=== PATIENT | male | born 1950 | race Caucasian/White ===

== ENCOUNTER 2020-02-06 11:08 | Emergency (ER) | payer OTHER, SELFPAY ==
--- NOTE | ~2020-02-06 | XR_ITS ---
EXAMINATION: XR chest 2V 02/06/2020 11:50 INDICATION: Cough with shortness of breath PROCEDURE: 2 view chest COMPARISON: 12/11/2013 FINDINGS: The lungs are clear. The cardiomediastinal silhouette is within normal limits. There are no pleural effusions. There is no pneumothorax suspected. Calcified granuloma right mid thorax. IMPRESSION: 1: NO ACUTE CARDIOPULMONARY DISEASE. Reviewed, dictated and finalized at location A. ICAL WRITER
[2020-02-06 11:20] VITALS: BP 162/93; PULSE 92; RESP 20; TEMP 36.8; O2SAT 97
--- NOTE | 2020-02-06 11:41 | ED.GENADULT ---
HPI - General Adult General Chief complaint: Upper Respiratory Infection Stated complaint: cough Source: patient Mode of arrival: ambulatory History of Present Illness HPI narrative: Patient presents for evaluation of respiratory complaints. He indicates that he celebrated Thanksgiving with his family including his [id number]-[id number]. He was contacted by his son yesterday who informed him that patient's [id number] did test positive for Covid. Patient states for the last week he has had postnasal drainage, yellow rhinorrhea, and a cough. Seven days ago he experienced subjective fever and chills. He has some mild shortness of breath but that is only with exertion. He does smoke about a pack a day at baseline but has only been smoking about 7 cigarettes a day in the last week due to his respiratory complaints. His is also here being evaluated for cough. Related Data Allergies Allergy/AdvReac Type Severity Reaction Status Date / Time Penicillins Allergy Unknown Verified 10/26/15 16:13 Sulfa (Sulfonamide Allergy Unknown Verified 10/26/15 16:13 Antibiotics) SULFAMETHOXAZOLE (Generic Allergy Y Uncoded 08/24/02 15:59 Allergy) Review of Systems Review of Systems: Narrative: CONSTITUTIONAL: Reports recent subjective fever, chills, sweats which are now resolved. EYES: Denies visual changes, redness, or discharge. ENT: Reports yellow rhinorrhea and postnasal drainage denies congestion, sore throat, or otalgia. CARDIOVASCULAR: Denies chest pain, palpitations, or edema. RESPIRATORY: Reports cough and dyspnea on exertion. GASTROINTESTINAL: Denies abdominal pain, nausea, vomiting, or diarrhea. GENITOURINARY: Denies dysuria or hematuria. SKIN: Denies rash or itching. MUSCULOSKELETAL: Denies back pain, joint pain, or myalgia. NEUROLOGIC: Denies headache, numbness, dizziness, or weakness. PSYCHIATRIC: Denies anxiety or depression. [facility] Past Medical History Medical History (Updated 02/06/20 @ 12:18 by HARMONY Goyal, ANANYA) Tobacco use disorder Surgical History Surgical History No pertinent past surgical history Family History Family History Mother Dementia Father Dementia Transient ischemic attack Social History Social History Smoking status: Heavy tobacco smoker Additional smoking assessment comments: 1 pack/day Alcohol intake: current Alcohol use details: 3-6 beers per day Substance use: never Living arrangements: with family Gender identity (if verbalized by the patient): Male Sexual Orientation (if Verbalized by the Patient): Straight or Heterosexual Spiritual care concerns: No Exam Narrative: Exam Narrative: GENERAL: Well-appearing, well-nourished, and in no acute distress. HEAD: Normocephalic, atraumatic. EYES: PERRLA and EOMI. ENT: Nares clear, no rhinorrhea or epistaxis. Mucous membranes moist. Oropharynx without tonsillar hypertrophy exudate or other lesions. Bilateral TMs pearly judge nonbulging NECK: Supple. No adenopathy or masses. No carotid bruits or JVD CHEST: No respiratory distress. Inspiratory and expiratory wheezing auscultated in all lung elias posteriorly HEART: Regular rate and rhythm. No murmur heard. Normal peripheral pulses. ABDOMEN: Soft, nontender, nondistended, normal active bowel sounds. EXTREMITIES: Normal range of motion. No edema. SKIN: Warm, dry, no rash. NEURO: No focal deficits. Alert and oriented x3. PSYCH: Normal mood and affect. Course Course Emergency Course: 69-year-old male with history of tobacco use who presents for respiratory symptoms after recent exposure to Covid. Chest x-ray was negative. Influenza and strep were both negative. On exam he is wheezing but saturations are within normal limits. He was given an injection of Solu-Medrol. She was advi
[2020-02-06] MEDS: methylPREDNISolone SOD SUCC 125 MG VIAL IM (11:50)
== END 2020-02-06 12:33 | disposition home or self-care (01) ==
PROVIDERS: Emergency Provider Nurse Practitioner
DX: R05 Cough (principal); R50.9 Fever, unspecified; Z20.828 Contact with and (suspected) exposure to other viral communicable diseases; F17.200 Nicotine dependence, unspecified, uncomplicated
CPT/HCPCS: 71046; 87081; 87804; 87880; 96372; 99213; G0463; J2930

== ENCOUNTER 2021-10-17 11:20 | Outpatient (CLI) | payer OTHER, MEDICARE, SELFPAY ==
--- NOTE | ~2021-10-17 | XR_ITS ---
XR chest 2V 10/17/2021 11:56 Indication: Umbilical hernia Procedure: 2 view chest Comparison: 02/06/2020 Findings: Bibasilar atelectasis. Calcified granuloma right mid thorax. Heart size is normal. No edema , focal pneumonia, significant effusion or pneumothorax. Impression: 1: Bibasilar atelectasis. Reviewed, dictated and finalized at location B. Impression: 1: Bibasilar atelectasis.
--- NOTE | 2021-10-17 11:30 | ECG_ITS ---
Measurements Intervals [place] Rate: 70 P: 69 [place]: 162 QRS: 43 QRSD: 93 T: 123 QT: 381 QTc: 411 Interpretive Statements SINUS RHYTHM NONSPECIFIC T-WAVE ABNORMALITY ABNORMAL ECG NO PREVIOUS ECG AVAILABLE FOR COMPARISON Electronically Signed On 10-17-2021 12:38:05 CDT by Gaston Jurado M.D.
[2021-10-17 12:06] LABS: Basophils Absolute Auto 0.1 K/mm3 (0.0-0.1); Basophils Percent Auto 0.6 % (0.2-1.2); Eosinophils Absolute Auto 0.2 K/mm3 (0-0.3); Eosinophils Percent Auto 2.2 % (0-4.4); Hematocrit 44.4 % (42.0-52.0); Hemoglobin 15.2 g/dL (14.0-18.0); Immature Granulocyte Absolute 0.09 K/mm3 (0.00-0.031); Immature Granulocyte Percent A 0.8 % (0-0.5); Lymphocytes Absolute Auto 2.64 K/mm3 (0.9-3.2); Lymphocytes Percent Auto 24.3 % (18.3-44.2); Mean Corpuscular HGB Conc 34.2 g/dl (32-36); Mean Corpuscular Hemoglobin 32.8 pg (26-34); Mean Corpuscular Volume 95.9 fl (80-100); Mean Platelet Volume 8.7 fl (7.4-10.4); Monocytes Absolute Auto 0.9 K/mm3 (0.1-0.6); Monocytes Percent Auto 8.6 % (2.6-8.5); Neutrophils Absolute Auto 6.9 K/mm3 (1.3-6.7); Neutrophils Percent Auto 63.5 % (45.5-73.1); Platelet Count Result 353 k/mm3 (150-375); Red Blood Count 4.63 M/mm3 (4.6-6.20); Red Cell Distribution Width 12.7 % (11.5-14.5); White Blood Count 10.9 K/mm3 (4.5-10.0)
[2021-10-17 12:18] LABS: Anion Gap 8 mmol/L (8-16); Blood Urea Nitrogen 17 mg/dL (9-20); Calcium 9.1 mg/dL (8.4-10.2); Carbon Dioxide 28 mmol/L (22-30); Chloride 99 mmol/L (98-107); Estimated Glomerular Filt Rate > 60; Glucose 107 mg/dL (65-110); Potassium 4.4 mmol/L (3.4-5.0); Sodium 135 mmol/L (137-145)
== END 2021-10-17 11:21 | disposition home or self-care (01) ==
LOC: ANHSURGERY 11:35
PROVIDERS: PCP Family Medicine; Visit Provider Surgery
DX: Z01.818 Encounter for other preprocedural examination (principal); K42.9 Umbilical hernia without obstruction or gangrene; J98.11 Atelectasis
CPT/HCPCS: 36415; 71046; 80048; 85025; 93005

== ENCOUNTER 2021-10-19 00:25 | Day surgery (SDC) | payer OTHER, MEDICARE, SELFPAY ==
[2021-10-15 15:11] VITALS: BMI 29.9
--- NOTE | 2021-10-15 15:20 | PC.NURSE ---
PRE-OP INSTRUCTIONS, PLEASE READ CAREFULLY Report to the Outpatient Waiting Room, entrance under the green pavilion located off [facility], at time _0730_ on date _10/19/21_. OR Time: _0930_. - You and your visitor will be asked to self-screen and do not enter if you have any COVID symptoms. - Only one visitor and NO children visitors are allowed at this time. - The patient visitor is requested to leave or wait in car when not with patient due to restrictions. - A mask is required within the hospital. Patients may have clear liquids (water, carbonated beverages, clear teas, apple juice) until 3 hours prior to surgery (0630 AM) with a maximum of 20 ounces. - No food from midnight until time of surgery Take the following medications with a SIP of water the morning of surgery: _NONE__ Medications to discontinue per ANESTHESIA - _PRESERVISION 3 DAYS PRIOR TO SURGERY, Date to take last dose 10/15/21_ Please no make-up, nail cymraes, hairspray, perfume, deodorant, or body powder the day of surgery. No jewelry (including any body piercings) or valuables the day of surgery, leave them at home. Please take a shower or bath the night before, or the morning of, surgery with an antibacterial soap. Wear comfortable, loose fitting clothing. Children are encouraged to wear pajamas. - Jewelry must be removed prior to entering the operating room. Rings and piercings that are not removed may be cut off. - The hospital will not accept responsibility for valuables. - Please leave all valuables, including medications, at home the day of surgery. If you are going home after surgery, a licensed milk pickup truck driver must drive you home. - NO public transportation without another adult. - We recommend that an adult stay with you for 24 hours following discharge. - We also recommend that you do not drive, make important decision, drink alcoholic beverages, or take any drugs that were not prescribed by your health care provider for at least 24 hours after your discharge time. Follow any additional instructions given to you from your surgeon. HIBICLENS SHOWER AM OF SURGERY If you or anyone in your household have experienced Covid symptoms in the past week, please notify your surgeon or the nurse liaison at the phone number below for possible testing. Telephone instructions given to __PT and asked if any additional questions and then verbalized understanding. Patient advised to call surgeon office or pre surgery nurse liaison [phone] if any additional questions.
--- NOTE | 2021-10-17 17:04 | PM.SD2 ---
Same Day Admit/Disch: HPI History of Present Illness Chief complaint: Umb Hernia Narrative: Ayo Guillen is a 71 year old male Who has noticed a bulge in the umbilical area for approximately 1 year. The bulge has been getting bigger and the patient notices a pressure and a pain when straining. He was seen in the office. After discussion he is taken to surgery at this time for repair of the umbilical hernia with mesh. [facility] Past Medical History Medical History BMI 29.0-29.9,adult Cough Fever Tobacco use disorder Surgical History Surgical History H/O wrist surgery 2002 No pertinent past surgical history Family History Family History Mother Dementia Father Dementia Transient ischemic attack Social History Social History Smoking packs per day: 1 Smoking cigarettes per day: 20.0 Years smoked: 40 Smoking pack-years: 40.00 Smoking status: Current every day smoker Tobacco type: cigarettes Second hand tobacco smoke exposure: Yes Additional smoking assessment comments: 1 pack/day Alcohol intake: current Alcohol use details: STATES WAS 3-6 BEERS DAILY NOW 12 BEERS/WEEK Substance use: never Substance use type: does not use Living arrangements: with family Gender identity (if verbalized by the patient): Male Sexual Orientation (if Verbalized by the Patient): Straight or Heterosexual Spiritual care concerns: No Same Day Admit/Disch: Med Pre-admit Medications Home Medications Medication Instructions Recorded Confirmed Type vit C 250 mg-E 90 mg-zinc 40 1 tablet PO QAM AND QPM 10/15/21 10/19/21 History mg-copper 1 el-vrijry-liriar chew tablet (PreserVision AREDS-2) hydrocodone 5 mg-acetaminophen 325 1 - 2 tablet PO Q6H PRN pain #10 10/19/21 Rx mg tablet tabs ibuprofen 600 mg tablet 600 mg PO Q6H PRN pain #14 tabs 10/19/21 Rx Exam Const: General: comfortable, no acute distress, alert and awake HENMT: Head: normocephalic and atraumatic Mouth: Yes Normal oral and palatal mucosa present Eyes: Conjunctivae: conjunctivae normal Pupils: Equal, round and reactive pupils present EOM: EOMs intact bilaterally Neck: Neck: normal visual inspection, no lymphadenopathy and nontender Resp: Effort & Inspection: normal respiratory effort Auscultation: clear to auscultation bilaterally Cardio: Rate: regular rate Rhythm: regular rhythm Heart sounds: no gallops, no murmurs and no rubs GI: Inspection: non-distended, obesity and visible herniation ( diastasis also visible) GI Palp: Yes Soft to palpation, No Tenderness to palpation present (GI), No Hepatomegaly present, No Splenomegaly present and Yes Hernia present ( reducible 1.5 cm umbilical hernia) Auscultation: normal bowel sounds Skin: Lesions: no lesions Rashes: no rashes Neuro: General: no focal motor deficits and CN's II-XI intact bilaterally Cranial nerves: Yes Equal, round and reactive pupils present, Yes Bilaterally intact EOM present, Yes facial symmetry and Yes Midline tongue present Speech: normal speech Motor exam (neuro): 5/5 motor strength present throughout and Motor abnormalities not present Extrem: General: no clubbing, cyanosis or edema and edema Psych: Affect: normal affect Thought process: Normal thought process present Insight: Good insight present (Psych) DS: Summary Time Spent with Patient Time attestation: Total time spent providing and/or coordinating discharge services: DS: Admitting Diagnosis Discharge Date 10/19/2021 Admitting Diagnosis symptomatic reducible umbilical hernia -plan to proceed with repair using mesh as an outpatient. The procedure the risks the benefits have been discussed. All questions were answered. He understands and agrees to go ahead. Jorge
--- NOTE | 2021-10-19 08:19 | WPDHPUPDATE1 ---
History and Physical Update Update Date/Time: 10/19/21 08:19 History and Physical has been reviewed, including an updated exam of the patient. There are NO changes in the patient's condition. Risks, benefits, and alternatives have been discussed and questions answered. Patient agrees to proceed with procedure.
[2021-10-19] MEDS: LACTATED RINGERS 1,000 ML 30 ML IV CONT (08:35)
[2021-10-19] MEDS: KETOROLAC 15 MG/ML VIAL (*BKC) IV PUSH (08:38)
[2021-10-19] MEDS: ACETAMINOPHEN 500 MG TABLET 1000 MG PO (08:38)
--- NOTE | 2021-10-19 08:44 | WPDANESEPPF ---
Anes - Initial Pre Proc Eval Procedure: Operation Date: 10/19/21 09:30 Proposed Procedures p Umbilical Hernia Repair with Mesh - Alexandru Barnes MD Date/Time: 10/19/21 08:44 Surgeon: Alexandru Barnes MD Pre Op Diagnosis: Umb Hernia Patient Data Age: 71 Gender: M Height: 1.83 m Weight: 100 kg Allergies Allergy/AdvReac Type Severity Reaction Status Date / Time Penicillins Allergy Mild Unknown- Verified 10/15/21 15:10 A CHILD Sulfa (Sulfonamide Allergy Mild Unknown- Verified 10/15/21 15:10 Antibiotics) A CHILD Home Medications Medication Instructions Recorded Confirmed Type vit C 250 mg-E 90 mg-zinc 40 1 tablet PO QAM AND QPM 10/15/21 10/15/21 History mg-copper 1 ee-hrwvld-jscfqo chew tablet (PreserVision AREDS-2) Patient hx anesthesia problems: none Family hx anesthesia problems: none Results Review: All pre-operative results and documents have been reviewed as part of the pre-operative evaluation. [facility] Past Medical History Medical History BMI 29.0-29.9,adult Cough Fever Tobacco use disorder Surgical History Surgical History H/O wrist surgery 2002 No pertinent past surgical history Family History Family History Mother Dementia Father Dementia Transient ischemic attack Social History Social History Smoking packs per day: 1 Smoking cigarettes per day: 20.0 Years smoked: 40 Smoking pack-years: 40.00 Smoking status: Current every day smoker Tobacco type: cigarettes Second hand tobacco smoke exposure: Yes Additional smoking assessment comments: 1 pack/day Alcohol intake: current Alcohol use details: STATES WAS 3-6 BEERS DAILY NOW 12 BEERS/WEEK Substance use: never Substance use type: does not use Living arrangements: with family Gender identity (if verbalized by the patient): Male Sexual Orientation (if Verbalized by the Patient): Straight or Heterosexual Spiritual care concerns: No Anes - Eval Final PreProcedure Day of Procedure 10/19/21 08:44 Patient weight: obese Heart: regular rate and rhythm Lungs: clear to auscultation Airway: Mallampati scale class II Neurological: alert and oriented Last oral intake: >/= 8 hours ASA classification: III Emergent: no Anesthetic plan: proceed Anesthesia type and monitoring: general GIVS and standard monitoring Results Review: All pre-operative results and documents have been reviewed as part of the pre-operative evaluation. Informed Consent: The patient's anesthetic plan and its attendant risks and benefits were discussed with the patient/family/POA. Questions were solicited and answers provided to the satisfaction of the patient/family/POA.
[2021-10-19] MEDS: ceFAZolin 2 GM/D5W 50 ML 2 GM/50 ML BAG IVPB (09:51)
[2021-10-19] MEDS: BUPIVACAINE/EPINEPHRINE 0.25% 50 ML VIAL 30 ML INFILTRATE (10:02)
[2021-10-19 10:45] VITALS: BP 134/72; PULSE 76; RESP 12; O2SAT 96
--- NOTE | 2021-10-19 10:52 | W.PM.PROC2 ---
Procedure Note - Detailed Date of Procedure 10/19/21 Pre-op Diagnosis Umb Hernia Post-op Diagnosis Same Procedure Performed Umbilical hernia repair with 6.[address] underlay mesh Surgeon Alexandru Barnes MD Sewage Disposal Engineer Maria L CLARK Anesthesia General (G IV S) and Local (0.25% bupivacaine with epinephrine) Indications Patient is a 71-year-old man with an umbilical bulge that is sometimes painful with straining. He is taken to surgery now for umbilical hernia repair. Findings Umbilical hernia. 1.8 cm in transverse dimension, 0.7 cm longitudinal direction Description of Procedure Patient was taken to surgery and anesthesia was introduced. The abdomen was prepped and draped. The proposed incision was marked along the upper margin of the umbilicus. Local anesthetic was infiltrated into the skin and the deeper subcutaneous tissues. Incision was made dissection was carried down through the subcutaneous. We dissected down to the hernia sac. We dissected around the hernia sac around the fascial neck of the hernia. I then infiltrated additional local into the hernia sac itself and to the fascia around the hernia defect. I divided the hernia sac at its neck and excised it from the fascia. I then excised the hernia sac from the umbilical skin. The sac was discarded. I infiltrated additional local into the fascia around the defect. I then undermined the subcutaneous all around the defect leaving plenty of space for transfascial sutures. A 6.[address] patch was chosen. It was placed in the defect in position symmetrically. Cranial and caudal transfascial sutures were then placed. These were then tied. Tying the suture advance the edges of the hernia defect towards 1 another, reducing the tension on the closure of the defect. Right and left lateral transfascial sutures were then placed. The sutures were all 0 Ethibond. I then used an additional 0 Ethibond suture and closed the defect with a oadbof-yy-zevvt mattress suture. This also incorporated a bit of mesh. The umbilical skin was then sutured to the fascia with 3-0 Vicryl. Some subcutaneous 3-0 Vicryl sutures were then placed. The skin was loosely approximated with subcuticular 4-0 Vicryl skin suture. The skin was finally closed with a running 4-0 Monocryl skin suture. Wound was dressed with Exofin surgical adhesive. The patient was awakened and taken to recovery in good condition. Sponge and needle counts were correct x2. Implants 6.[address] mesh Estimated Blood Loss -5 Drains No Packing No Pathology None sent Complications No immediate complications Condition Stable Disposition Same day [facility] Billing Surgery - Charge Forward: Surgery Billing (Umbilical hernia repair with mesh)
[2021-10-19 11:15] VITALS: BP 150/75; PULSE 74; RESP 16
[2021-10-19] MEDS: oxyCODONE HCL (*CRX) 5 MG TAB IR PO (11:32)
[2021-10-19 11:45] VITALS: BP 152/72; PULSE 74; RESP 16
== END 2021-10-19 11:57 | disposition home or self-care (01) ==
PROVIDERS: PCP Family Medicine; Visit Provider Surgery
PROC: (CPT 49585; principal; 2021-10-19 09:30)
DX: K42.9 Umbilical hernia without obstruction or gangrene (principal); F17.210 Nicotine dependence, cigarettes, uncomplicated
CPT/HCPCS: 49585; 36415; 71046; 80048; 85025; 93005; A9270; C1781; J0690; J1885; J2704; J3010; J7120

== ENCOUNTER 2022-09-30 09:00 | Outpatient (NON) | payer OTHER, MEDICARE, SELFPAY | END 2022-09-30 09:01 | disposition home or self-care (01) | LOC: ANHLAB 10-01 10:35 | PROVIDERS: PCP Family Medicine; Visit Provider Internal Medicine Gastroenterology | DX: Z12.11 Encounter for screening for malignant neoplasm of colon (principal); D12.2 Benign neoplasm of ascending colon; D12.4 Benign neoplasm of descending colon; D12.5 Benign neoplasm of sigmoid colon | CPT/HCPCS: 88305 ==

== ENCOUNTER 2022-09-30 09:29 | Day surgery (SDC) | payer OTHER, MEDICARE, SELFPAY ==
[2022-09-17 13:50] VITALS: BMI 29.6
[2022-09-17 14:31] VITALS: BMI 27.0
--- NOTE | 2022-09-30 10:47 | WPDANESEPPF ---
Anes - Initial Pre Proc Eval Procedure: Operation Date: 09/30/22 12:00 Proposed Procedures p Screening Colonoscopy - Salinas Starr MD Date/Time: 09/30/22 10:47 Surgeon: Salinas Starr MD Pre Op Diagnosis: Neoplasm Screening Patient Data Age: 72 Gender: M Height: 1.83 m Weight: 90.5 kg Allergies Allergy/AdvReac Type Severity Reaction Status Date / Time Penicillins Allergy Mild Unknown- Verified 09/30/22 10:46 A CHILD Sulfa (Sulfonamide Allergy Mild Unknown- Verified 09/30/22 10:46 Antibiotics) A CHILD Home Medications Medication Instructions Recorded Confirmed Type vit C 250 mg-E 90 mg-zinc 40 1 tablet PO QAM AND QPM 10/15/21 09/17/22 History mg-copper 1 yu-tvafsv-gfwbxg chew tablet (PreserVision AREDS-2) Patient hx anesthesia problems: none Family hx anesthesia problems: none Results Review: All pre-operative results and documents have been reviewed as part of the pre-operative evaluation. [facility] Past Medical History Medical History BMI 29.0-29.9,adult Cough Fever Tobacco use disorder Surgical History Surgical History H/O umbilical hernia repair 10/19/21 H/O wrist surgery 2002 No pertinent past surgical history Family History Family History Mother Dementia Father Dementia Transient ischemic attack Social History Social History Smoking packs per day: 1 Smoking cigarettes per day: 20.0 Years smoked: 40 Smoking pack-years: 40.00 Smoking status: Current every day smoker Tobacco type: cigarettes Second hand tobacco smoke exposure: Yes Additional smoking assessment comments: 1 pack/day Alcohol intake: current Alcohol use details: STATES WAS 3-6 BEERS DAILY NOW 12 BEERS/WEEK Substance use: never Substance use type: does not use Living arrangements: with family Gender identity (if verbalized by the patient): Male Sexual Orientation (if Verbalized by the Patient): Straight or Heterosexual Spiritual care concerns: No Anes - Eval Final PreProcedure Day of Procedure 09/30/22 10:47 Patient weight: overweight Heart: regular rate and rhythm Lungs: clear to auscultation Airway: Mallampati scale class II Neurological: alert and oriented Last oral intake: >/= 8 hours ASA classification: III Emergent: no Anesthetic plan: proceed Anesthesia type and monitoring: general GIVS and standard monitoring Results Review: All pre-operative results and documents have been reviewed as part of the pre-operative evaluation. Informed Consent: The patient's anesthetic plan and its attendant risks and benefits were discussed with the patient/family/POA. Questions were solicited and answers provided to the satisfaction of the patient/family/POA.
[2022-09-30 10:49] VITALS: BP 143/85; PULSE 76; RESP 16; TEMP 36.7; O2SAT 97
[2022-09-30] MEDS: LACTATED RINGERS 1,000 ML 150 ML IV CONT (10:58)
--- NOTE | 2022-09-30 11:06 | PM.HPGS ---
History of Present Illness History of Present Illness Consent: Risks, benefits, and alternatives have been discussed and questions answered. Patient agrees to proceed with procedure. Chief complaint: Neoplasm Screening Narrative: Ayo Guillen is a 72 year old male here for screening colonoscopy, last one about 20 years ago Review of Systems Constitutional: Constitutional: Denies headache(s) and Denies weakness Eyes: Eyes: Denies blurry vision ENT: Reports Normal hearing present, Denies headache(s) and Denies neck pain Cardiovascular: Cardiovascular: Denies chest pain and Denies dyspnea Respiratory: Respiratory: Denies dyspnea Gastrointestinal: Gastrointestinal: Reports no additional gastrointestinal complaints Genitourinary: Genitourinary: Denies dysuria Musculoskeletal: Musculoskeletal: Denies neck pain Integumentary/Breasts: Skin/Breast: Denies dry skin Neurologic: Reports Normal hearing present, Denies headache(s) and Denies weakness Psychiatric: Psychiatric: Denies anxiety Endocrine: Endocrine: Denies change in body appearance Hematologic/Lymphatic: Hematologic/Lymphatic: Denies easy bleeding Allergic/Immunologic: Allergic/Immunologic: Denies urticaria PMFSH Past Medical History Medical History (Updated 09/30/22 @ 11:07 by Salinas Starr MD) BMI 29.0-29.9,adult Colon cancer screening Cough Fever Tobacco use disorder Surgical History Surgical History H/O umbilical hernia repair 10/19/21 H/O wrist surgery 2002 No pertinent past surgical history Family History Family History Mother Dementia Father Dementia Transient ischemic attack Social History Social History Smoking packs per day: 1 Smoking cigarettes per day: 20.0 Years smoked: 40 Smoking pack-years: 40.00 Smoking status: Current every day smoker Tobacco type: cigarettes Second hand tobacco smoke exposure: Yes Additional smoking assessment comments: 1 pack/day Alcohol intake: current Alcohol use details: STATES WAS 3-6 BEERS DAILY NOW 12 BEERS/WEEK Substance use: never Substance use type: does not use Living arrangements: with family Gender identity (if verbalized by the patient): Male Sexual Orientation (if Verbalized by the Patient): Straight or Heterosexual Spiritual care concerns: No Meds Home Medications and Allergies Home Medications Medication Instructions Recorded Confirmed Type vit C 250 mg-E 90 mg-zinc 40 1 tablet PO QAM AND QPM 10/15/21 09/30/22 History mg-copper 1 mq-ebydbg-rxyexm chew tablet (PreserVision AREDS-2) Allergies Allergy/AdvReac Type Severity Reaction Status Date / Time Penicillins Allergy Mild Unknown- Verified 09/30/22 10:46 A CHILD Sulfa (Sulfonamide Allergy Mild Unknown- Verified 09/30/22 10:46 Antibiotics) A CHILD Vital Signs Vital Signs - 24 hr 09/30/22 10:49 Temperature 98.0 F Pulse Rate 76 Respiratory Rate 16 Blood Pressure 143/85 H Pulse Oximetry 97 Oxygen Delivery Room Air Exam Const: General: comfortable and no acute distress HENMT: Face/Nose/Sinus: Normal nares present Eyes: General: appearance normal, both eyes and all related structures Neck: Neck: no JVD Resp: Auscultation: clear to auscultation bilaterally Cardio: Rate: regular rate Rhythm: regular rhythm GI: Inspection: non-distended GI Palp: Yes Soft to palpation Skin: General skin exam: normal color Neuro: General: gait normal Speech: normal speech Extrem: General: normal to inspection Psych: Mental Status: mental status grossly normal Assessment and Plan Assessment and plan (1) Colon cancer screening: Code(s): Z12.11 - Encounter for screening for malignant neoplasm of colon Status: Acute Assessment and Plan: colonoscopy
[2022-09-30 11:38] VITALS: BP 121/72; PULSE 78; RESP 18; O2SAT 97
--- NOTE | 2022-09-30 11:42 | WPDANESPN ---
Anes - Prog Note Post-Op Date/Time: 09/30/22 11:42 Cardiovascular status: normal Respiratory status: normal Airway patency: baseline Mental status: baseline Post-Op hydration status: normal Vital Signs: Last Vital Signs Temp 36.7 C 09/30/22 10:49 Pulse 76 09/30/22 10:49 Resp 16 09/30/22 10:49 BP 143/85 H 09/30/22 10:49 Pulse Ox 97 09/30/22 10:49 O2 Del Method Room Air 09/30/22 10:49 Pain Score (VAS): 0/10 I/O: Intake & Output 09/29/22 09/30/22 09/30/22 23:59 07:59 15:59 Intake Total 600 Balance 600 Patient Feedback: Patient satisfied with anesthetic care.
[2022-09-30 11:48] VITALS: BP 137/79; PULSE 79; RESP 20; O2SAT 99
[2022-09-30 11:58] VITALS: BP 146/86; PULSE 66; RESP 20; O2SAT 99
== END 2022-09-30 12:14 | disposition home or self-care (01) ==
PROVIDERS: PCP Family Medicine; Visit Provider Internal Medicine Gastroenterology
PROC: 0DJD8ZZ Inspection of Lower Intestinal Tract, Via Natural or Artificial Opening Endoscopic (ICD-10-PCS; CPT 45378; principal; 2022-09-30 12:00)
DX: Z12.11 Encounter for screening for malignant neoplasm of colon (principal); D12.2 Benign neoplasm of ascending colon; D12.4 Benign neoplasm of descending colon; D12.5 Benign neoplasm of sigmoid colon; K57.30 Diverticulosis of large intestine without perforation or abscess without bleeding; K64.8 Other hemorrhoids
CPT/HCPCS: 45385

== ENCOUNTER 2023-10-01 10:32 | Emergency (ER) | payer MEDICARE, SELFPAY ==
[2023-10-01 10:48] VITALS: BP 185/86; PULSE 98; RESP 15; TEMP 36.2; O2SAT 97
--- NOTE | 2023-10-01 11:09 | ED.MALEGU ---
HPI - Male Genitourinary General Chief complaint: Urogenital-Male Stated complaint: testicle swelling Time Seen by Provider: 10/01/23 10:50 Source: patient and RN notes reviewed Mode of arrival: ambulatory Limitations: no limitations History of Present Illness HPI Narrative: Patient presents today complaining of swelling to his scrotum and penis that started at 4:00 p.m. yesterday afternoon. Denies injury or trauma to the area. States he may have been bit by an insect to the left groin fold while pulling weeds. He has been applying ice without relief of symptoms. He has tried no medication for symptoms prior to arrival. Denies pain, but reports some very scant itching. Denies issues with urination besides his normal prostate issues. Related Data Home Medications Medication Instructions Recorded Confirmed vit C 250 mg-E 90 mg-zinc 40 1 tablet PO QAM AND QPM 10/15/21 10/01/23 mg-copper 1 [id number] chew tablet (PreserVision AREDS-2) Allergies Allergy/AdvReac Type Severity Reaction Status Date / Time Penicillins Allergy Mild Unknown- Verified 10/01/23 10:35 A CHILD Sulfa (Sulfonamide Allergy Mild Unknown- Verified 10/01/23 10:35 Antibiotics) A CHILD Review of Systems Review of Systems: CONSTITUTIONAL: Denies body aches, fever, chills, or sweats. EYES: Denies visual changes, redness, or discharge. ENT: Denies rhinorrhea, congestion, sore throat, or otalgia. CARDIOVASCULAR: Denies chest pain, palpitations, or edema. RESPIRATORY: Denies cough or dyspnea. GASTROINTESTINAL: Denies abdominal pain, nausea, vomiting, or diarrhea. GENITOURINARY: Denies dysuria or hematuria. + scrotal and penile swelling SKIN: Denies rash, itching, or wounds. MUSCULOSKELETAL: Denies back pain, joint pain, or myalgia. NEUROLOGIC: Denies headache, numbness, tingling, or weakness. PSYCH: Denies depression or anxiety. [facility] Past Medical History Medical History BMI 29.0-29.9,adult Colon cancer screening Cough Fever Tobacco use disorder Surgical History Surgical History H/O umbilical hernia repair 10/19/21 H/O wrist surgery 2002 No pertinent past surgical history Family History Family History Mother Dementia Father Dementia Transient ischemic attack Social History Social History Smoking packs per day: 1 Smoking cigarettes per day: 20.0 Years smoked: 40 Smoking pack-years: 40.00 Smoking status: Current every day smoker Tobacco type: cigarettes Second hand tobacco smoke exposure: Yes Additional smoking assessment comments: 1 pack/day Alcohol intake: current Alcohol use details: STATES WAS 3-6 BEERS DAILY NOW 12 BEERS/WEEK Substance use: never Substance use type: does not use Living arrangements: with family Gender identity (if verbalized by the patient): Male Sexual Orientation (if Verbalized by the Patient): Straight or Heterosexual Spiritual care concerns: No Comments At time of signature, I have reviewed and agree with nursing past medical, surgical, social and family history unless otherwise noted. Please see nursing chart for further information. There is no relevant family history pertinent to the presenting complaint Exam Narrative: GENERAL: Well-appearing, well-nourished, and in no acute distress. HEAD: Normocephalic, atraumatic. EYES: EOMI. No redness or drainage. Conjunctivae normal. ENT: Mucous membranes pink and moist. NECK: Normal AROM. CHEST: No respiratory distress. :Severe edema to the scrotum and moderate edema to the penis. Induration to the scrotum as well. Unable to palpate the testicles due to edema of the scrotum. Nontender to palpation. No insect bite/puncture wounds noted to the left groi
== END 2023-10-01 11:12 | disposition short-term general hospital (02) ==
PROVIDERS: Emergency Provider Nurse Practitioner; PCP Family Medicine
DX: N50.89 Other specified disorders of the male genital organs (principal); N48.89 Other specified disorders of penis; F17.210 Nicotine dependence, cigarettes, uncomplicated
CPT/HCPCS: 99212; G0463

== ENCOUNTER 2023-10-01 11:59 | Emergency (ER) | payer MEDICARE, SELFPAY ==
--- NOTE | ~2023-10-01 | US_ITS ---
TESTICULAR ULTRASOUND (Doppler ultrasound interrogation techniques used as needed for this exam.) Ordering provider: Valeria Warner PA-C History: . bilateral testicle swelling . Comparison: None. FINDINGS: TESTICLES: Normal in size. The right measures 3.3x 2x 1.9 cm and the left measures 4.8x 2.9x 3.1 cm. Hyperechoic well-circumscribed area in the lateral aspect of the right testicular is noted. Otherwise , Normal echogenicity bilaterally without mass lesion. Normal Doppler flow bilaterally. EPIDIDYMIDES: Normal in size. The right measures 0.6 cm and the left 0.8 cm. Normal echogenicity bila terally. Both demonstrate normal Doppler flow. HYDROCELE: Small left VARICOCELE: None. OTHER ABNORMALITY: Thickened scrotal wall measuring 2 cm bilaterally.. IMPRESSION: Echogenic area in the right testicular. The differential include hematoma versus a mass versus infect ion. Follow-up advised. Thickened scrotum. Small left hydrocele Otherwise, normal testicular ultraso und. Reviewed, dictated and finalized at location A. IMPRESSION: Echogenic area in the right testicular. The differential include hematoma versu s a mass versus infection. Follow-up advised. Thickened scrotum. Small left hy drocele Otherwise, normal testicular ultrasound.
[2023-10-01 12:01] VITALS: BP 191/95; PULSE 105; RESP 18; TEMP 37.1; O2SAT 99
[2023-10-01 13:03] LABS: Appearance Urine Clear (Clear); Bilirubin Urine Negative (Negative); Blood Urine Negative (Negative); Color Urine Yellow (Yellow); Glucose Urine UA Negative (Negative); Ketones Urine Negative (Negative); Leukocyte Esterase Ur Negative LEU/UL (Negative); Nitrate Urine Negative (Negative); Protein Urine Negative (Negative); Specific Grav Ur 1.013 (1.001-1.035); Urobilinogen Urine 0.2 mg/dL (<2.0); pH Urine 6.5 (5.0-9.0)
[2023-10-01 13:09] LABS: Add Urine Microscopic? NO
[2023-10-01] MEDS: FAMOTIDINE 20 MG TABLET 40 MG PO (13:50)
[2023-10-01] MEDS: dexAMETHasone SOD PHOS INJ 10 MG/ML 1 ML VIAL PO (13:50)
[2023-10-01] MEDS: diphenhydrAMINE HCl CAP 25 MG CAPSULE 50 MG PO (13:50)
--- NOTE | 2023-10-01 14:18 | WPDURCON ---
Assessment and Plan Assessment and plan (1) Epididymoorchitis: Code(s): N45.3 - Epididymo-orchitis Status: Acute Assessment and Plan: Right side. Will begin Bactrim x2 weeks. Recommend scrotal support and compression. Will f/u in 2 weeks with repeat scrotal ultrasound prior. Instructed to return to ER if worsened swelling, pain, fever, chills. (2) Scrotal swelling: Code(s): N50.89 - Other specified disorders of the male genital organs Status: Acute Assessment and Plan: Plan as above. Discussed supportive care measures Urology Consult Note HPI Date Seen: 10/01/23 Primary Care Provider: Tadeo Kam MD Consult Narrative Narrative: Ayo Guillen is a 73 year old male with history of BPH not currently on any medications who is being seen in consultation for bilateral testicular pain and swelling. The patient states he was out pulling weeks yesterday when he had sudden onset of sharp left groin pain. He felt that he was either stung or bit by something. Today while he was urinating he looked down and noticed significant swelling of his penis and bilateral testicles. He has no tenderness, pain, or discomfort. Does endorse some mild heaviness sensation. Denies fever, chills, nausea, vomiting. Reports he is voiding without difficulty and denies dysuria, hematuria, or incomplete emptying. He initially went to urgent care for evaluation of these symptoms and was instructed to go to ER for further evaluation. He has remained afebrile. Scrotal ultrasound was completed which shows hyperechoic well circumcised area the lateral aspect of the right testicle, small left hydrocele and thickened scrotal wall bilaterally. Review of Systems Review of Systems: All systems reviewed & are unremarkable except as noted in HPI and below [facility], [facility] Past Medical History Medical History BMI 29.0-29.9,adult Colon cancer screening Cough Fever Tobacco use disorder Surgical History Surgical History H/O umbilical hernia repair 10/19/21 H/O wrist surgery 2002 No pertinent past surgical history Family History Family History Mother Dementia Father Dementia Transient ischemic attack Social History Social History Smoking packs per day: 1 Smoking cigarettes per day: 20.0 Years smoked: 40 Smoking pack-years: 40.00 Smoking status: Current every day smoker Tobacco type: cigarettes Second hand tobacco smoke exposure: Yes Additional smoking assessment comments: 1 pack/day Alcohol intake: current Alcohol use details: STATES WAS 3-6 BEERS DAILY NOW 12 BEERS/WEEK Substance use: never Substance use type: does not use Living arrangements: with family Gender identity (if verbalized by the patient): Male Sexual Orientation (if Verbalized by the Patient): Straight or Heterosexual Spiritual care concerns: No Meds Home Medications and Allergies Home Medications Medication Instructions Recorded Confirmed Type vit C 250 mg-E 90 mg-zinc 40 1 tablet PO QAM AND QPM 10/15/21 10/01/23 History mg-copper 1 [id number] chew tablet (PreserVision AREDS-2) Allergies Allergy/AdvReac Type Severity Reaction Status Date / Time Penicillins Allergy Mild Unknown- Verified 10/01/23 12:00 A CHILD Sulfa (Sulfonamide Allergy Mild Unknown- Verified 10/01/23 12:00 Antibiotics) A CHILD Vital Signs Vital Signs - 24 hr 10/01/23 12:01 Temperature 98.7 F Pulse Rate 105 H Respiratory Rate 18 Blood Pressure 191/95 H Pulse Oximetry 99 Oxygen Delivery Room Air Exam Narrative: General: Awake, alert, comfortable, no acute distress HEENT: Normocephalic, atraumatic, sclerae anicteric Respiratory: Normal respirato
--- NOTE | 2023-10-01 15:01 | ED.GENADULT ---
HPI - General Adult General Chief complaint: Urogenital-Male Stated complaint: swollen testicles, something on end of my penis Time Seen by Provider: 10/01/23 12:44 History of Present Illness HPI narrative: This is a 73-year-old male presenting with swollen testicles. Patient was doing lawn work when he felt a sting on the left side of his testicles. Several hours later when he went use restroom he noticed that his testicles and penis were severely swollen. They are not painful. No itching. No other signs of allergic reactions. No difficulty urinating. Related Data Home Medications Medication Instructions Recorded Confirmed vit C 250 mg-E 90 mg-zinc 40 1 tablet PO QAM AND QPM 10/15/21 10/01/23 mg-copper 1 [id number]-[id number] chew tablet (PreserVision AREDS-2) Allergies Allergy/AdvReac Type Severity Reaction Status Date / Time Penicillins Allergy Mild Unknown- Verified 10/01/23 12:00 A CHILD Sulfa (Sulfonamide Allergy Mild Unknown- Verified 10/01/23 12:00 Antibiotics) A CHILD [facility] Past Medical History Medical History BMI 29.0-29.9,adult Colon cancer screening Cough Fever Tobacco use disorder Surgical History Surgical History H/O umbilical hernia repair 10/19/21 H/O wrist surgery 2002 No pertinent past surgical history Family History Family History Mother Dementia Father Dementia Transient ischemic attack Social History Social History Smoking packs per day: 1 Smoking cigarettes per day: 20.0 Years smoked: 40 Smoking pack-years: 40.00 Smoking status: Current every day smoker Tobacco type: cigarettes Second hand tobacco smoke exposure: Yes Additional smoking assessment comments: 1 pack/day Alcohol intake: current Alcohol use details: STATES WAS 3-6 BEERS DAILY NOW 12 BEERS/WEEK Substance use: never Substance use type: does not use Living arrangements: with family Gender identity (if verbalized by the patient): Male Sexual Orientation (if Verbalized by the Patient): Straight or Heterosexual Spiritual care concerns: No Exam Narrative: APPEARANCE: No apparent distress. Head: atraumatic. EYES: EOMI, NOSE: Atraumatic NECK: Trachea midline RESPIRATORY: No increased rate of breathing CARDIOVASCULAR: RRR, ABDOMINAL: Non-distended : Significant scrotal swelling (L>R), redness, no warmth, significant swelling of penile shaft, no wound, bite, or break in skin, nontender to palpation, no penile discharge MUSCULOSKELETAl: No obvious deformities NEURO: Alert. Moving 4/4 extremities SKIN:: Warm, dry. Normal color PSYCHIATRIC: Normal affect Course Vital Signs Vital signs: Vital Signs Temperature 98.7 F 10/01/23 12:01 Pulse Rate 105 H 10/01/23 12:01 Respiratory Rate 18 10/01/23 12:01 Blood Pressure 191/95 H 10/01/23 12:01 Pulse Oximetry 99 10/01/23 12:01 Oxygen Delivery Room Air 10/01/23 12:01 Temperature 98.7 F 10/01/23 12:01 Pulse Rate 105 H 10/01/23 12:01 Respiratory Rate 18 10/01/23 12:01 Blood Pressure 191/95 H 10/01/23 12:01 Pulse Oximetry 99 10/01/23 12:01 Oxygen Delivery Room Air 10/01/23 12:01 Medical Decision Making [facility] Narrative Medical decision making narrative: -Course: 73-year-old male presenting swollen genitals. Ultrasound unremarkable. Patient was evaluated by Urology. They recommended 2 weeks of Bactrim and outpatient urology follow-up. Patient had a listed allergy to sulfa antibiotics. However this was from when he was a small child he never remembers any actual allergy. He was given Bactrim here with no reaction. Patient discharged. Given return precautions. -DDX includes but is not limited to:, insect bite, Allergic reaction, scrotal cellulitis -Inde
[2023-10-01] MEDS: SULFAMETHOXAZOLE/TRIMETHOPRIM 800/160 MG DS TABLET 1 TAB PO (15:17)
== END 2023-10-01 16:15 | disposition home or self-care (01) ==
PROVIDERS: Physician Assistant; Emergency Provider Emergency Medicine; PCP Family Medicine
DX: N45.3 Epididymo-orchitis (principal); N50.89 Other specified disorders of the male genital organs; N40.0 Benign prostatic hyperplasia without lower urinary tract symptoms; F17.210 Nicotine dependence, cigarettes, uncomplicated
CPT/HCPCS: 76870; 81003; 93976; 99283; 99284; A9270; J1100

== ENCOUNTER 2023-10-15 09:29 | Outpatient (CLI) | payer MEDICARE, SELFPAY ==
--- NOTE | ~2023-10-15 | US_ITS ---
EXAMINATION: US scrotum doppler DATE: 10/15/2023 10:19 INDICATION: Epididymoorchitis TECHNIQUE: Testicular sonogram utilizing grayscale and Doppler COMPARISON: 10/01/2023 FINDINGS: The right testis measures 3.2 x 1.4 x 3.0 cm. The left testis measures 4.3 x 2.2 x 3.4 cm. Now normal symmetric grayscale appearance to both testes. The previously seen region of focal heterogeneous inc reased and decreased echogenicity in the right testis is now nearly indiscernible from the surroundin g testis. There is normal vascular flow to both testes. The right epididymis is normal with normal va scular flow. 3 mm anechoic left epididymal cyst. The left epididymis is otherwise normal with normal vascular flow. There is no varicocele. Small bilateral hydroceles. Resolution of the prior scrotal ed yancy. IMPRESSION: 1. The previously relatively prominent focal region of heterogeneous echogenicity in the right testi s has nearly resolved, now difficult to discern from the remainder of the testis suggesting an infect ious/inflammatory etiology. 2. Small bilateral hydroceles. Reviewed, dictated and finalized at location A. IMPRESSION: 1. The previously relatively prominent focal region of heterogeneous echogenic ity in the right testis has nearly resolved, now difficult to discern from the remainder of the testis suggesting an infectious/inflammatory etiology. 2. Small bilateral hydroceles.
== END 2023-10-15 09:30 | disposition home or self-care (01) ==
PROVIDERS: PCP Family Medicine; Visit Provider Physician Assistant
DX: N45.3 Epididymo-orchitis (principal); N43.3 Hydrocele, unspecified
CPT/HCPCS: 76870; 93976